=== PATIENT | male | born 2000 | race Caucasian/White ===

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

== ENCOUNTER 2018-02-26 05:13 | Emergency (ER) | payer OTHER ==
[~2018-02-26] VITALS: Ht 175.3 cm; Wt 123.2 kg
[~2018-02-26 05:13] MED LIST changes: +CIPRO500 MG PO; +FLOMAX0.4 MG PO; +NAPROSYN500 MG PO; +PERCOCET 5/31 TABLET PO
[2018-02-26 08:39] VITALS: BP 121/74
== END 2018-02-26 08:43 | disposition home or self-care (01) ==
LOC: EME → EDBD 05:13 → EME 08:43
DX: F10.129 Alcohol abuse with intoxication, unspecified (principal); Y90.6 Blood alcohol level of 120-199 mg/100 ml; F43.9 Reaction to severe stress, unspecified; T68.XXXA Hypothermia, initial encounter; X31.XXXA Exposure to excessive natural cold, initial encounter; F17.200 Nicotine dependence, unspecified, uncomplicated
CPT/HCPCS: 99281; 99285; G0480; J7030